=== PATIENT | female | born 1980 | race Caucasian/White ===

== ENCOUNTER 2021-02-10 09:46 | Inpatient (IN) ==
[2021-02-10] MEDS ORDERED: Ondansetron 4 MG/2 ML VIAL IVP PRN (10:56)
[2021-02-10] MEDS ORDERED: Famotidine 20 MG/2 ML VIAL IVP PRN (10:56)
[2021-02-10] MEDS ORDERED: Metoclopramide 10 MG/2 ML VIAL IVP PRN (10:56)
[2021-02-10] MEDS ORDERED: Naloxone 0.4 MG/ML INJ IVP PRN (10:56)
[2021-02-10] MEDS ORDERED: Ringers Solution, Lactated 1,000 ML IVC SCH (11:00)
[2021-02-10] MEDS ORDERED: Doxycycline 100 MG CAPSULE PO ONE (11:00)
[2021-02-10] MEDS ORDERED: Ringers Solution, Lactated 1,000 ML ONE ×2 (11:01→12:25)
[2021-02-10 11:14] LABS: Basophils % 0.4 %; Eosinophils # 0.2 K/mcL (0.0-0.6); Eosinophils % 2.5 %; Hematocrit 37.2 % (35.3-44.9); Hemoglobin 12.9 g/dL (11.5-15.4); Immature Granulocytes % 0.3 % (0-4); Lymphocytes # 1.9 K/mcL (0.6-4.6); Lymphocytes % 28.6 %; Mean Corpuscular HGB Conc 34.7 g/dL (31.6-35.5); Mean Corpuscular Hemoglobin 32.5 pg (28.0-33.3); Mean Corpuscular Volume 93.7 fL (83.0-100.0); Mean Platelet Volume 10.4 fL (9.4-12.4); Monocytes # 0.5 K/mcL (0.0-1.3); Neutrophils # 4.1 K/mcL (1.6-8.9); Platelet Count 241 K/mcL (140-400); Red Blood Count 3.97 M/mcL (3.82-4.97); Red Cell Distribution Width 12.8 % (11.5-14.5); Segmented Neutrophils % 61.2 %; White Blood Count 6.7 K/mcL (4.3-11.1)
[2021-02-10] MEDS ORDERED: Doxycycline 100 MG in 0.9 % Sodium Chloride Mini Bag 100 ML IVPB ONE (11:18)
[2021-02-10] MEDS ORDERED: Scopolamine Patch 1.5 MG PATCH.TD72 TD ONE (11:20)
[2021-02-10] MEDS ORDERED: *HR* Propofol 200 MG/20 ML VIAL IVP ONE (11:34)
[2021-02-10] MEDS ORDERED: *HR* FentaNYL (PF) 100 MCG/2 ML VIAL ONE (11:34)
[2021-02-10] MEDS ORDERED: *HR* Midazolam HCl 2 MG/2 ML VIAL ONE (11:34)
[2021-02-10] MEDS ORDERED: Lidocaine -MPF 2% 5 ML VIAL ONE (11:36)
[2021-02-10] MEDS ORDERED: Ondansetron 4 MG/2 ML VIAL ONE (11:36)
[2021-02-10] MEDS ORDERED: *HR* Succinylcholine 200 MG/10 ML VIAL IVP ONE (11:36)
[2021-02-10] MEDS ORDERED: Acetaminophen IV 1,000 MG/100 ML BAG IVPB ONE (12:24)
[2021-02-10] MEDS ORDERED: Ketorolac 30 MG/ML VIAL ONE (12:35)
[2021-02-10 13:25] LABS: Basophils % 0.1 %; Eosinophils # 0.1 K/mcL (0.0-0.6); Hematocrit 31.6 % (35.3-44.9); Immature Granulocytes % 0.3 % (0-4); Lymphocytes # 2.4 K/mcL (0.6-4.6); Lymphocytes % 34.8 %; Mean Corpuscular HGB Conc 34.5 g/dL (31.6-35.5); Mean Corpuscular Hemoglobin 32.2 pg (28.0-33.3); Mean Corpuscular Volume 93.5 fL (83.0-100.0); Mean Platelet Volume 10.3 fL (9.4-12.4); Monocytes # 0.4 K/mcL (0.0-1.3); Neutrophils # 4.1 K/mcL (1.6-8.9); Platelet Count 202 K/mcL (140-400); Red Blood Count 3.38 M/mcL (3.82-4.97); Red Cell Distribution Width 12.8 % (11.5-14.5); Segmented Neutrophils % 57.8 %
[2021-02-10 13:26] LABS: Hemoglobin 10.9 g/dL (11.5-15.4)
[2021-02-10] MEDS ORDERED: *HR* HYDROmorphone (PF) 1 MG/ML SYRINGE IVP ONE (14:16)
[2021-02-10] MEDS ORDERED: EPHEDrine 50 MG/ML VIAL ONE (14:29)
[2021-02-10 15:05] VITALS: TEMP 98
[2021-02-10] MEDS ORDERED: Methylergonovine 0.2 MG/ML AMPUL IM ONE (17:24)
[2021-02-10 17:35] VITALS: O2SAT 97
[2021-02-10 17:38] VITALS: BP 97/61; PULSE 75
== END 2021-02-10 17:25 | disposition home or self-care (01) | DRG 770 ==
LOC: SAMDAY 09:46 → 1NENULAB 10:37
PROVIDERS: ADMIT Student in an Organized Health Care Education/Training Program; ATTEND Student in an Organized Health Care Education/Training Program